=== PATIENT | male | born 2000 | race Two or more races ===

== ENCOUNTER 2022-10-19 13:08 | Emergency (ER) | payer MEDICAID, SELFPAY ==
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
[2022-10-19 13:29] VITALS: BP 133/76; PULSE 100; RESP 18; TEMP 36.7; O2SAT 98; BMI 26.4
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
== END 2022-10-19 14:31 | disposition home or self-care (01) ==
PROVIDERS: Emergency Provider Emergency Medicine
DX: S13.4XXA Sprain of ligaments of cervical spine, initial encounter (principal); S43.402A Unspecified sprain of left shoulder joint, initial encounter; S39.012A Strain of muscle, fascia and tendon of lower back, initial encounter; M54.2 Cervicalgia; R51.9 Headache, unspecified; V43.52XA Car driver injured in collision with other type car in traffic accident, initial encounter; Y93.9 Activity, unspecified; Y92.410 Unspecified street and highway as the place of occurrence of the external cause; Y99.9 Unspecified external cause status
CPT/HCPCS: 72040; 72100; 73030; 99282; 99283

== ENCOUNTER 2023-04-27 21:41 | Emergency (ER) | payer MEDICAID, SELFPAY ==
[2023-04-27 21:44] VITALS: BP 132/57; PULSE 87; RESP 18; TEMP 36.6; O2SAT 96; BMI 30.3
[2023-04-27 22:00] VITALS: BP 135/60; PULSE 84; RESP 18; O2SAT 97
[2023-04-28] VITALS: BP 140/60; PULSE 86; RESP 18; O2SAT 97
--- NOTE | 2023-04-28 00:53 | ED_ITS ---
HPI - Ear Problem General Chief complaint: Ear Problems Stated complaint: right ear pain/cant hear Time Seen by Provider: 04/28/23 00:35 Source: patient Mode of arrival: ambulatory Limitations: no limitations History of Present Illness HPI Narrative: 23-year-old male who presents emergency department for evaluation of right ear pain x6 days, worse the last 4 days. He states the pain is now constant. He states that he had a fever x1 day but this resolved. He states he has had decreased hearing in his right your compared to his left. He has not had any drainage from the right ear. He does use Q-tips daily. He has not gone swimming recently. He denied rhinorrhea, sore throat, cough, chest pain, shortness of breath Related Data Previous Rx's Medication Instructions Recorded cyclobenzaprine 10 mg tablet 10 mg PO Q8H #14 tabs 10/19/22 naproxen 500 mg tablet 500 mg PO BID PRN pain #14 tabs 10/19/22 acetaminophen 500 mg tablet 1,000 mg PO Q6H PRN fever or pain 04/28/23 (Tylenol Extra Strength) #20 tabs amoxicillin 500 mg capsule 1,000 mg PO Q12H 10 days #40 caps 04/28/23 ibuprofen 400 mg tablet 400 mg PO TID PRN fever or pain 04/28/23 #30 tabs Allergies Allergy/AdvReac Type Severity Reaction Status Date / Time No Known Allergies Allergy Verified 04/27/23 21:44 Review of Systems Review of Systems: Yes all other systems are reviewed and are negative [facility] Past Medical History [facility] Narrative: Past medical history: None. Social history: He denies tobacco, alcohol and drug use. Social History Social History Alcohol intake: current Alcohol intake frequency: holidays/special occasions only Smoked in Last 30 Days: No Use of substances other than those prescribed or required for medical reasons: No Advance Directives: No Advance Directives Information Provided: Yes Physical Exam Vital Signs: Vital Signs: Last Vital Signs Temp 97.8 F 04/27/23 21:44 Pulse 86 04/28/23 00:00 Resp 18 04/28/23 00:00 BP 140/60 H 04/28/23 00:00 Pulse Ox 97 04/28/23 00:00 O2 Del Method Room Air 04/27/23 21:44 BMI result Body Mass Index 30.3 Medical Decision Making Medical Decision Making MDM Narrative: 23-year-old male who presents emergency department for evaluation of 6 days of right ear pain worse the past 4 days with 1 day of fever, diminished hearing and no other concerning symptoms. Patient's physical examination is consistent with right otitis media. He was treated emergency department amoxicillin 1000 mg orally, ibuprofen 40 mg orally and Tylenol 975 mg orally. He was discharged with prescriptions for: Amoxicillin 1000 mg q.12 hours times 10 days Ibuprofen 400 mg q.6 hours as needed for pain Extra-strength Tylenol 500 mg, 2 pills every 6 hours as needed for pain Differential Diagnosis Differential diagnosis includes but is not limited to otitis media, otitis externa, perforated tympanic membrane Discharge Plan Discharge Clinical Impression: Otitis media Qualifiers: Chronicity: acute Laterality: right Recurrence: non-recurrent Spontaneous tympanic membrane rupture: without spontaneous rupture Patient Disposition: Home, Self-Care Instructions: Ear Infection (ED) Additional Instructions: You have an infection of your right your ear drum (tympanic membrane). Take amoxicillin 500 mg pills, 2 pills, every 12 hours (2times a day) for 10 days. Take ibuprofen 400 mg pills, 2 pills every 6 hours as needed for pain. Take Tylenol (acetaminophen) 500 mg pills, 2 pills every 6 hours as needed for pain. Follow-up with your doctor in 2 days. Please return to the emergency department if your symptoms get worse or if you develop any symptoms that are concerning to you. Do not use Q-tips since this can cause small cuts and abrasions to your ear canal which then can lead to an infection of the ear canal. You do not have an ear canal infection at this time but if you continue to use Q-tips you will developed an infection Prescriptions: New amoxicillin 500 mg capsule 1,000 mg PO Q12H 10 Days Qty: 40 0RF acetaminophen [Tylenol Extra Strength] 500 mg tablet 1,000 mg PO Q6H PRN (Reason: fever or pain) Qty: 20 0RF ibuprofen 400 mg tablet 400 mg PO TID PRN (Reason: fever or pain) Qty: 30 0RF No Action naproxen 500 mg tablet 500 mg PO BID PRN (Reason: pain) Qty: 14 0RF cyclobenzaprine 10 mg tablet 10 mg PO Q8H Qty: 14 0RF
[2023-04-28] MEDS: Acetaminophen 325 MG TABLET 975 MG PO (01:17)
[2023-04-28] MEDS: Amoxicillin 500 MG CAPSULE 1000 MG PO (01:18)
[2023-04-28] MEDS: Ibuprofen 400 MG TABLET PO (01:18)
== END 2023-04-28 01:25 | disposition home or self-care (01) ==
PROVIDERS: Emergency Provider Emergency Medicine Emergency Medical Services
DX: H66.91 Otitis media, unspecified, right ear (principal); H92.01 Otalgia, right ear
CPT/HCPCS: 99283; 99284

== ENCOUNTER 2024-02-04 08:10 | Emergency (ER) | payer MEDICAID, SELFPAY ==
[2024-02-04 08:13] VITALS: BP 108/86; PULSE 108; RESP 20; TEMP 37.5; O2SAT 96; BMI 34.3
[2024-02-04 08:47] LABS: IDNOW Serial# 08D9AD1C; Strep A Nucleic Acid Negative (Negative)
[2024-02-04 09:07] LABS: Influenza A PCR POSITIVE (Negative); Influenza B PCR NEGATIVE (Negative); Resp Syncy Virus RNA Qual PCR NEGATIVE (Negative); SARS COV2 PCR INHOUSE NEGATIVE (Negative)
--- NOTE | 2024-02-04 09:12 | ED.URI ---
HPI - URI/Sore Throat General Chief Complaint: Upper Respiratory Symptoms Stated Complaint: flu symptons Time Seen by Provider: 02/04/24 09:09 Source: patient Mode of arrival: ambulatory Limitations: no limitations History of Present Illness HPI Narrative: 23 male presenting today for evaluation of body aches, sore throat, N/V/D, and fevers/chills at home for 5 days. He reports recent travel to [place] 10 days ago. No known sick contacts there or at home. He reports about 5 days ago, he developed a dry cough and general malaise. Reports poor PO intake but has been trying to water intake. Reports acute worsening yesterday with diarrhea and vomiting but is feeling better today. Yesterday, had some chest pain, SOB, and sore throat with swallowing, coughing. Came to the ER today to be evaluated because he was concerned with yesterday's symptoms. Denies N/V/D today but reports general aches. Denies abdominal pain. No syncope. Has tried acetaminophen with little to no relief. MD elicited complaint: fever, cough, sore throat and nasal congestion Onset (ago): day(s) Consistency: constant Severity: moderate Description of mucous: clear Exacerbating factors: swallowing, exertion and speaking Relieving factors: rest Context: recent travel (went to [place] 10 days ago) Associated symptoms: fever, chills, cough, chest pain and shortness of breath Treatments prior to arrival: acetaminophen Related Data Previous Rx's ?Medication ?Instructions ?Recorded cyclobenzaprine 10 mg tablet 10 mg PO Q8H #14 tabs 10/19/22 naproxen 500 mg tablet 500 mg PO BID PRN pain #14 tabs 10/19/22 acetaminophen 500 mg tablet 1,000 mg (2 x 500 mg) PO Q6H PRN 04/28/23 (Tylenol Extra Strength) fever or pain #20 tabs amoxicillin 500 mg capsule 1,000 mg (2 x 500 mg) PO Q12H 10 04/28/23 days #40 caps ibuprofen 400 mg tablet 400 mg PO TID PRN fever or pain 04/28/23 #30 tabs Allergies Allergy/AdvReac Type Severity Reaction Status Date / Time No Known Allergies Allergy Verified 02/04/24 08:14 Review of Systems Review of Systems: Yes all other systems are reviewed and are negative [facility] Social History Social History Alcohol intake: current Alcohol intake frequency: holidays/special occasions only Advance Directives: No Physical Exam Vital Signs: Vital Signs: Last Vital Signs Temp 99.5 F 02/04/24 09:45 Pulse 106 H 02/04/24 09:45 Resp 20 02/04/24 09:45 BP 108/86 02/04/24 09:45 Pulse Ox 96 02/04/24 09:45 O2 Del Method Room Air 02/04/24 09:45 BMI result Body Mass Index 34.3 Appearance: Alert. Oriented X3. No acute distress. Head: normocephalic, atraumatic. ENT: 2+ tonsillar swelling, erythematous oropharynx with thin viel of mucus overlying, cobblestoning Neck: Normal inspection. Neck supple. CVS: Normal heart rate and rhythm. Pulses normal. Respiratory: No respiratory distress. Breath sounds normal. Abdomen: Soft and nontender. +BS x4 Skin: Skin warm and dry. Normal skin color. Normal skin turgor. No rashes. Extremities: No lower extremity edema. No joint swelling. Neuro/psych: Oriented X 3. Medical Decision Making Medical Decision Making [facility] Narrative: Jose Manuel is a 23 year old male who presents today evaluation of body aches, sore throat, N/V/D for 5 days. Recent travel to [place] 10 days ago. Tested positive for flu A in ER today. On presentation, he is tachycardiac with low grade fever but is otherwise comfortable and nontoxic appearing. Low clinical suspicion considering patient's improvement and stable hemodynamic status. Out of window for oseltamivir, VSS are presentation and he is feeling comfortable and safe to discharge with supportive measures. Differential Diagnosis Differential Diagnoses: The differential diagnosis associated with the presentation includes flu, COVID, RSV, viral gastroenteritis, food poisoning, sepsis Lab Data MDM Lab Attestation statement: I reviewed the patient's lab results. Flu A positive Labs: Lab Results 02/04/24 Range/Units 08:21 Influenza Type A (PCR) POSITIVE A (Negative) Influenza Type B (PCR) NEGATIVE (Negative) RSV RNA Qual (PCR) NEGATIVE (Negative) SARS-CoV-2 RNA (RT-PCR) NEGATIVE (Negative) S. pyogenes GrpA USAMA Negative (Negative) External Record Review External record reviewed: Prior outpatient labs Tests considered The following testing was considered but not selected: CXR considered, lungs clear however Prescription Management I considered prescription management with: Pain Medication and Antibiotic Critical Care Time Critical Care Time Critical Care Time: No Discharge Plan Discharge Clinical Impression: Influenza Patient Disposition: Home, Self-Care Instructions: Influenza (DC) Additional Instructions: You were found to be Influenza A POSITIVE today. Your exam and oxygen levels were normal. Rest. Drink plenty of fluids. Do not go out in public while you are not feeling well. Take over the counter cold/flu medications as needed for your symptoms. Take Tylenol and/or Motrin as needed for fevers and body aches. Follow up with your doctor this week. If you shortness of breath worsens, if you develop difficulty breathing or any other concerning symptom come back to the ER for further evaluation. Prescriptions: No Action naproxen 500 mg tablet 500 mg PO BID PRN (Reason: pain) Qty: 14 0RF cyclobenzaprine 10 mg tablet 10 mg PO Q8H Qty: 14 0RF amoxicillin 500 mg capsule 1,000 mg PO Q12H 10 Days Qty: 40 0RF acetaminophen [Tylenol Extra Strength] 500 mg tablet 1,000 mg PO Q6H PRN (Reason: fever or pain) Qty: 20 0RF ibuprofen 400 mg tablet 400 mg PO TID PRN (Reason: fever or pain) Qty: 30 0RF Interventions: ED Discharge Assessment Last Done: 02/04/24 09:45 Discharge Date/Time: 02/04/24 09:46 Print Language: Mozambican
[2024-02-04 09:45] VITALS: BP 108/86; PULSE 106; RESP 20; TEMP 37.5; O2SAT 96
== END 2024-02-04 09:46 | disposition home or self-care (01) ==
PROVIDERS: Emergency Provider Emergency Medicine
DX: J10.1 Influenza due to other identified influenza virus with other respiratory manifestations (principal); M79.10 Myalgia, unspecified site; R11.2 Nausea with vomiting, unspecified; Z11.52 Encounter for screening for COVID-19; Z20.822 Contact with and (suspected) exposure to COVID-19
CPT/HCPCS: 0241U; 87651; 99282; 99283

== ENCOUNTER 2024-02-11 17:52 | Emergency (ER) | payer MEDICAID, SELFPAY ==
--- NOTE | ~2024-02-11 | XR_ITS ---
EXAMINATION: XR CHEST CLINICAL INFORMATION: Cough. COMPARISON: None available. TECHNIQUE: 2 views of the chest were obtained. FINDINGS: Normal appearance of the cardiomediastinal silhouette. Central peribronchial thickening. Equivocal focal hazy airspace opacities projecting over the medial right lower lobe. No pleural effusion or pneumothorax. No pulmonary edema. No acute osseous findings. XR/XR chest 2V IMPRESSION: Findings are suggestive of small airways disease versus atypical/viral infection with early infiltrates in the right lower lobe. No pleural effusion.
[2024-02-11 18:08] VITALS: BP 100/52; PULSE 87; RESP 18; TEMP 36.8; O2SAT 97; BMI 33.9
--- NOTE | 2024-02-11 20:10 | ED_ITS ---
HPI - URI/Sore Throat General Chief Complaint: Upper Respiratory Symptoms Stated Complaint: Back pain Time Seen by Provider: 02/11/24 19:44 Source: patient Mode of arrival: ambulatory History of Present Illness HPI Narrative: 23-year-old male who presents with having experienced what he describes as a viral infection about 2 weeks ago for then states that over the past week he has continued to have cough with feelings of shortness of breath and also complains of mid upper back pain that worsens with coughing. Related Data Previous Rx's ?Medication ?Instructions ?Recorded cyclobenzaprine 10 mg tablet 10 mg PO Q8H #14 tabs 10/19/22 naproxen 500 mg tablet 500 mg PO BID PRN pain #14 tabs 10/19/22 acetaminophen 500 mg tablet 1,000 mg (2 x 500 mg) PO Q6H PRN 04/28/23 (Tylenol Extra Strength) fever or pain #20 tabs amoxicillin 500 mg capsule 1,000 mg (2 x 500 mg) PO Q12H 10 04/28/23 days #40 caps ibuprofen 400 mg tablet 400 mg PO TID PRN fever or pain 04/28/23 #30 tabs azithromycin 250 mg tablet 250 mg PO DAILY 4 days #4 tabs 02/11/24 Allergies Allergy/AdvReac Type Severity Reaction Status Date / Time No Known Allergies Allergy Verified 02/11/24 18:09 Review of Systems Review of Systems: Pertinent positives and negatives as stated in [facility] Past Medical History Source: nursing notes reviewed Social History Social History Alcohol intake: current Alcohol intake frequency: holidays/special occasions only Advance Directives: No Advance Directives Information Provided: No Physical Exam Vital Signs: Vital Signs: Last Vital Signs Temp 98.3 F 02/11/24 18:08 Pulse 87 02/11/24 18:08 Resp 18 02/11/24 18:08 BP 100/52 L 02/11/24 18:08 Pulse Ox 97 02/11/24 18:08 O2 Del Method Room Air 02/11/24 18:08 BMI result Body Mass Index 33.9 VITAL SIGNS: Reviewed. GENERAL: Well developed, well nourished, in no acute distress. HEAD: Normocephalic/atraumatic EYES: PERRLA, EOMI EARS: Ext canals without abnormality, TMs non-bulging and non-erythematous NOSE: Nares patent bilateral OROPHARYNX: no oral lesions noted, posterior pharynx clear and non-erythematous without noted tonsillar enlargement/erythema/exudates NECK: Supple, no adenopathy LUNGS: Normal breath sounds. No adventitious sounds or accessory muscle use. SpO2<97> CARDIOVASCULAR: Regular rate and rhythm without noted murmurs, no JVD or lower extremity edema. ABDOMEN: Soft, non-tender, non-distended with bowel sounds. MUSCULOSKELETAL: No tenderness, deformities, or effusions noted on gross inspection. EXTREMITIES: No cyanosis, clubbing or edema. SKIN: Inspection of the skin reveals no rashes NEUROLOGIC: Alert and oriented x 4. Strength and sensation to light touch were grossly intact x 4. Medical Decision Making Medical Decision Making MDM Narrative: 23-year-old male with history and clinical presentation of recent viral infection, specifically influenza a, and now comes in with mid upper back discomfort with continued coughing and corresponding chest x-ray today suggest small airway disease versus atypical viral infection in early infiltrates in right lower lobe, patient will be treated with a Z-Syed as well as provided with Ventolin inhaler and given strict return precautions. Differential Diagnosis Differential Diagnoses: The differential diagnosis associated with the p resentation includes Please see the discussion above Admission/Observation Consideration of admission/observation: Escalation of care including admission/observation considered Please see the discussion above Radiology Impression Discussion of test interpretation with radiology: I have reviewed the radiologist's reading. Radiologist Impression: Please see the discussion above External Record Review External record reviewed: Outpatient record, Prior outpatient labs and Prior outpatient radiology Critical Care Time Critical Care Time Critical Care Time: Yes Total Critical Care Time: 30 Attestation: I personally attest to this time spent taking care of the patient. Discharge Plan Discharge Clinical Impression: Upper respiratory infection Patient Disposition: Home, Self-Care Instructions: Upper Respiratory Infection (ED) Additional Instructions: 1. Begin taking the azithromycin tomorrow morning. 2. Inhaler, 2 puffs, every 4-6 hours for shortness of breath or wheezing. 3. Establish care with a primary care physician in follow-up. Return to the ER for any worsening symptoms. Prescriptions: New azithromycin 250 mg tablet 250 mg PO DAILY 4 Days Qty: 4 0RF Rx Instructions: start on day 2 of therapy No Action naproxen 500 mg tablet 500 mg PO BID PRN (Reason: pain) Qty: 14 0RF cyclobenzaprine 10 mg tablet 10 mg PO Q8H Qty: 14 0RF amoxicillin 500 mg capsule 1,000 mg PO Q12H 10 Days Qty: 40 0RF acetaminophen [Tylenol Extra Strength] 500 mg tablet 1,000 mg PO Q6H PRN (Reason: fever or pain) Qty: 20 0RF ibuprofen 400 mg tablet 400 mg PO TID PRN (Reason: fever or pain) Qty: 30 0RF Print Language: Albanian
[2024-02-11] MEDS: Azithromycin 500 MG TABLET PO (21:17)
[2024-02-11] MEDS: Albuterol Sulfate 90 MCG 8 GM INHALER 2 PUFF INHALE (21:18)
[2024-02-11 21:23] VITALS: BP 100/52; PULSE 87; RESP 18; TEMP 36.8; O2SAT 97
== END 2024-02-11 21:24 | disposition home or self-care (01) ==
PROVIDERS: Emergency Provider Student in an Organized Health Care Education/Training Program
DX: J06.9 Acute upper respiratory infection, unspecified (principal); M54.50 Low back pain, unspecified; R06.02 Shortness of breath; R05.9 Cough, unspecified
CPT/HCPCS: 71046; 99282; 99284

== ENCOUNTER 2025-01-10 21:10 | Emergency (ER) | payer MEDICAID, SELFPAY ==
[2025-01-10 21:27] VITALS: BP 128/59; PULSE 102; RESP 18; TEMP 36.9; O2SAT 98; BMI 26.8
--- OUTSIDE RECORDS SUMMARY | 2025-01-11 01:01 | XMS_ITS | Encounter Summary ---
Author Organization [facility] Address [address] [place] [address] Phone Care Team Providers Care Stroboroma Operator Name Role Phone Franky Cantu MD Primary Care Provider Encounter Details Date Type Department Care Team (Late st Contact Info) Description 11/10/2011 Documentation EM Family Medicine [address] [place] [address] Family Medicine, Physician [address] [place], [place] [id number] Social History Tobacco Use Types Packs/Day Years Used Date Smoking Tobacco: Never Assessed Sex and Gender Information Value Date Recorded Sex Assigned at Not on file Legal Sex Male 4:57 PM EDT Gender Identity Not on file Sexual Orientation Not on file documented as of this encounter Plan of Treatment Not on file documented as of this encounter Visit Diagnoses Not on filedocumented in this encounter Care Teams Stroboroma Operator Relationship Specialty Start Date End Date Franky Cantu MD [address] [facility] [place] [id number] PCP - General 06/12/17 02/10/23 documented as of this encounter
--- OUTSIDE RECORDS SUMMARY | 2025-01-11 01:01 | XMS_ITS | Clinical Summary ---
Author Organization [facility] Address [address] [place] [id number] Phone Care Team Providers Care Social Work Case Manager Name Role Phone Unavailable Primary Care Provider Unavailabl e Immunizations Immunization Administration Dates Next Due DTaP 5 06/20/2004, 2,2000, 000,2000 H1N1 10/04/2009 HPV, Quadrivalent 08/30/2013,04/14/2012,02/12/20 12 Hep A, ped/adol 02/28/2015 Hep B, ped/adol 01/19/2001,2000,2000 Hib (PRP-T) 08/19/2001, 0,2000, 000 IPV 04/25/2005, 1,2000, Influenza Split 01/16/2011 Influenza, injectable, trivalent 09/20/2009,09/02 Influenza, intranasal, quadrivalent 08/01/2014,1 Influenza, intranasal, trivalent 10/14/2011 MMR 06/20/2004,05/11/2001 Meningococcal Conj (Menactra) MCV4P 02/12/2012 Pneumococcal Conjugate 05/11/2001,1999,2000, 000 Tdap 02/12/2012 Varicella 09/18/2008,05/11/2001 Family History Relation Name Status Comments Brother Alive Brother: Alive and well Father Alive Father: Alive a nd well Mother Alive Mother: Obesity Other Family history of Cancer - stomach, No family history of *Sudden /DE under 55, Family history of ADD/ADHD, Family history of Asthma, No family history of Diabetes mellitus, No family history of Developmental dislocation of hip, Family history of Migraines, No family history of Strabismus, Family history of *CVA/Stroke, Family history of Hyperlipidemia, No family history of Deafness, No family history of *Heart Disease, No family history of Seizure disorder Social History Tobacco Use Types Packs/Day Years Used Date Smoking Tobacco: Never Comments:Never smoker Sex and Gender Information Value Date Recorded Sex Assigned at Not on file Legal Sex Male 4:57 PM EDT Gender Identity Not on file Sexual Orientation Not on file Last Filed Vital Signs Vital Sign Reading Time Taken Comments Blood Pressure 90/59 05/18/2015 12:00 AM EDT Pulse 89 05/18/2015 12:00 AM EDT Temperature 36.7 ??C (98.1 ??F) 05/18/2015 12:00 AM E DT Respiratory Rate - - Oxygen Saturation - - Inhaled Oxygen Concentration - - Weight 81.6 kg (180 lb) 05/18/2015 12:00 AM EDT Height 175.8 cm (5' 9.2 ) 05/18/2015 12:00 AM ED T Body Mass Index 26.43 05/18/2015 12:00 AM EDT Plan of Treatment Health Maintenance Due Date Last Done Comments Hepatitis A Vaccines (2 of 2 - 2-dose series) 08/30/2015 02/28/2015 DTaP,Tdap,and Td Vaccines (7 - Td or Tdap) 02/11/2022 02/12/2012, 06/20/2004, 11/11/2001, Additional history exists Influenza Vaccines (#1) 2024 08/01/20 14, 08/30/2013, 10/14/2011, Additional history exists COVID-19 Vaccine ( season) 2024 Hepatitis B Vaccines Completed 01/19/2001, 2000, 2000 Pneumococcal Vaccine Completed 05/11/2001, 2000, 2000, Additional history exists HIB Vaccines Completed 08/19/2001, 10/02, 2000, Additional history exists MMR Vaccines Completed 06/20/2004, 05/11/2001 IPV Vaccines Completed 04/25/2005, 08/02, 2000, Additional history exists Varicella Vaccines Completed 09/18/2008, 05/11/2001 Meningococcal Vaccine Aged Out 02/12/2012 No rhea sara eligible based on patient's age to complete this topic HPV Vaccines Completed 08/30/2013, 04/02, 02/12/2012 Men B Vaccine Aged Out No longer lucretiag ible based on patient's age to complete this topic
--- NOTE | 2025-01-11 01:02 | ED.GENADULT ---
HPI - General Adult General Chief complaint: General Medical Stated complaint: Hemorrhoid Time Seen by Provider: 01/11/25 01:02 Source: patient Mode of arrival: ambulatory Limitations: no limitations History of Present Illness ED Provider: Dr. Jd Hendrickson HPI narrative: 24-year-old male who presents emergency department for evaluation of external hemorrhoid x1 week. 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 He states that he has been exercising vigorously in order to lose weight to meet his weight requirement. He states over the last 2 months he was lost 51 lb. He states that over the last 2 weeks in order to make weight, he was using laxatives which and having frequent bowel movement. The patient states that he noted an external hemorrhoid. He states that the hemorrhoid is not painful, pruritic or bleeding. Patient was concerned about the hemorrhoids who came to the emergency department for evaluation. Patient states he has been using preparation H cream with no reduction in the size of the hemorrhoid. Related Data Previous Rx's ?Medication ?Instructions ?Recorded cyclobenzaprine 10 mg tablet 10 mg PO Q8H #14 tabs 10/19/22 naproxen 500 mg tablet 500 mg PO BID PRN pain #14 tabs 10/19/22 acetaminophen 500 mg tablet 1,000 mg (2 x 500 mg) PO Q6H PRN 04/28/23 (Tylenol Extra Strength) fever or pain #20 tabs amoxicillin 500 mg capsule 1,000 mg (2 x 500 mg) PO Q12H 10 04/28/23 days #40 caps ibuprofen 400 mg tablet 400 mg PO TID PRN fever or pain 04/28/23 #30 tabs azithromycin 250 mg tablet 250 mg PO DAILY 4 days #4 tabs 02/11/24 hydrocortisone 2.5 % topical cream 1 appl PA BEDTIME 2 weeks #30 grams 01/11/25 with perineal applicator (Proctosol HC) Allergies Allergy/AdvReac Type Severity Reaction Status Date / Time No Known Allergies Allergy Verified 01/10/25 21:27 Review of Systems Review of Systems: Yes all other systems are reviewed and are negative [facility] Social History Social History Alcohol intake: current Alcohol intake frequency: holidays/special occasions only Advance Directives: No Physical Exam ED Vital Signs: Vital Signs - 24 hr 01/10/25 21:27 01/11/25 01:06 01/11/25 01:16 Temperature 98.4 F 98.7 F Pulse Rate 102 H 98 92 Respiratory Rate 18 18 18 Blood Pressure 128/59 L 125/71 125/66 Pulse Oximetry 98 99 97 Oxygen Delivery Method Room Air Room Air Room Air 01/11/25 01:41 Temperature 98.7 F Pulse Rate 92 Respiratory Rate 18 Blood Pressure 125/66 Pulse Oximetry 97 Oxygen Delivery Method Room Air BMI result Body Mass Index 26.8 Vital signs were normal. Exam: Rectal: The patient has a small, tender, non thrombosed hemorrhoid. Rectal tone was normal. Stool was brown and nonbloody. Medical Decision Making Medical Decision Making MDM Narrative: 24-year-old male who presents emergency department for evaluation of external hemorrhoid x1 week. 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 He states that he has been exercising vigorously in order to lose weight to meet his weight requirement. He states over the last 2 months he was lost 51 lb. He states that over the last 2 weeks in order to make weight, he was using laxatives which and having frequent bowel movement. The patient states that he noted an external hemorrhoid. He states that the hemorrhoid is not painful, pruritic or bleeding. Patient was concerned about the hemorrhoids who came to the emergency department for evaluation. Patient states he has been using preparation H cream with no reduction in the size of the hemorrhoid. Physical exam did reveal a small tender external hemorrhoid which she was not bleeding or thrombosed. Differential diagnosis: ?Includes but is not limited to external hemorrhoid, thrombosed hemorrhoid, anal fissure Course: Patient was exam is consistent with a small external hemorrhoid that does not appear to be thrombosed. The patient was advised to use preparation H suppositories twice a day for 2 weeks. He was also given prescription for Proctozone hydrocortisone cream 2.5% at bedtime for 2 weeks. Patient was advised to increase his fluid intake and fiber intake. He was given printed and verbal instructions and discharged home Admission/Observation Consideration of admission/observation: Escalation of care including admission/observation considered (No) Prescription Management I considered prescription management with: Other (Anti hemorrhoid cream: Proctozone 2.5%) Discharge Plan Discharge Clinical Impression: External hemorrhoids Patient Disposition: Home, Self-Care Instructions: Hemorrhoids (ED) Additional Instructions: Use preparation H suppositories twice a day and after each bowel movement. This medication dissolves in your rectum and coats/lubricated the rectum so that when you move your bowels, the stool does not irritate the hemorrhoid. Use Proctozone 2.5% with an applicator insert the applicator anterior rectum and squeeze a small amount of cream around the hemorrhoid. Do this at night for 2 weeks and this should help shrink the hemorrhoid. Increase the fiber in your diet and drink lots of fluid to soften up your stool. Follow-up with your doctor in 2 days. Please return to the emergency department if your symptoms get worse or if you develop any symptoms that are concerning to you. Prescriptions: New hydrocortisone [Proctosol HC] 2.5 % cream with perineal applicator 1 appl PA BEDTIME 14 Days Qty: 30 0RF No Action naproxen 500 mg tablet 500 mg PO BID PRN (Reason: pain) Qty: 14 0RF cyclobenzaprine 10 mg tablet 10 mg PO Q8H Qty: 14 0RF amoxicillin 500 mg capsule 1,000 mg PO Q12H 10 Days Qty: 40 0RF acetaminophen [Tylenol Extra Strength] 500 mg tablet 1,000 mg PO Q6H PRN (Reason: fever or pain) Qty: 20 0RF ibuprofen 400 mg tablet 400 mg PO TID PRN (Reason: fever or pain) Qty: 30 0RF azithromycin 250 mg tablet 250 mg PO DAILY 4 Days Qty: 4 0RF Rx Instructions: start on day 2 of therapy Interventions: ED Discharge Assessment Last Done: 01/11/25 01:41 Discharge Date/Time: 01/11/25 01:42 Print Language: Nepali
[2025-01-11 01:06] VITALS: BP 125/71; PULSE 98; RESP 18; O2SAT 99
[2025-01-11 01:16] VITALS: BP 125/66; PULSE 92; RESP 18; TEMP 37.1; O2SAT 97
--- NOTE | 2025-01-11 01:40 | PC.NURSE ---
Reviewed discharge instructions with pt. pt verbalized understanding, no sign of distress, notified primary nurse Kelly
[2025-01-11 01:41] VITALS: BP 125/66; PULSE 92; RESP 18; TEMP 37.1; O2SAT 97
== END 2025-01-11 01:42 | disposition home or self-care (01) ==
PROVIDERS: Emergency Provider Emergency Medicine Emergency Medical Services
DX: K64.4 Residual hemorrhoidal skin tags (principal)
CPT/HCPCS: 99283

== ENCOUNTER → 2025-10-13 08:06 | Outpatient (BNVA) | payer SELFPAY | DX: Z02.1 Encounter for pre-employment examination (principal); Z13.1 Encounter for screening for diabetes mellitus | CPT/HCPCS: 82947 ==